=== PATIENT | female | born 1995 | race African-American/Black ===

== ENCOUNTER 2019-12-24 17:09 | Emergency (ER) | payer BC ==
[~2019-12-24] VITALS: Ht 154.9 cm; Wt 172.7 kg
[2019-12-24 17:22] VITALS: Ht 154.9 cm; Wt 172.7 kg
[2019-12-24 18:02] LABS: HCG URINE NEGATIVE (NEGATIVE)
[2019-12-24 18:10] LABS: APTT 32.1 SECONDS (22.8-39.4); INR 1.08 (0.85-1.17)
[2019-12-24 18:12] LABS: BASOPHILS 0.3 % (0-2); CALC OSMOLALITY 277 mosm/kg (275-300); CALCIUM 9.1 mg/dL (8.5-10.1); CARBON DIOXIDE 27.1 mmol/L (21.0-32.0); CHLORIDE - SERUM 102 mmol/L (98-107); EOSINOPHILS 0 % (0-7); GLUCOSE 138 mg/dL (74-106); HEMATOCRIT 38.7 % (36.0-48.0); HEMOGLOBIN 11.9 g/dL (12-16); LYMPHOCYTES 11.1 % (15-50); MCH 26.1 pg (26.0-34.0); MCHC 30.7 g/dL (31.0-37.0); MCV 84.9 fL (80.0-100.0); MONOCYTES 7.1 % (2-11); NEUTROPHILS 80.5 % (40-80); PLATELET COUNT 296 10x3/uL (130-400); POTASSIUM - SERUM 3.7 mmol/L (3.5-5.1); RBC 4.56 10x6/uL (4.00-5.40); RDW 15.7 % (11.5-14.5); SODIUM 138 mmol/L (136-145); UREA NITROGEN 12 mg/dL (7-18); WBC 10.7 10x3/uL (4.8-10.8); eGFR NON AFRICAN AMERICAN 72 mL/min (90-120)
[2019-12-24 18:19] LABS: BILIRUBIN NEGATIVE (NEGATIVE); KETONE SMALL mg/dL (NEGATIVE); NITRITE NEGATIVE (NEGATIVE); UROBILINOGEN NORMAL (NORMAL)
[2019-12-24 18:20] LABS: BACTERIA FEW /hpf (NONE SEEN); RED CELLS - URINE 0-5 /hpf (0-5); WHITE CELLS - URINE 0-5 /hpf (0-5)
[2019-12-24 18:32] LABS: ALBUMIN 3.4 g/dL (3.4-5.0); ALKALINE PHOSPHATASE 60 U/L (30-120); ALT (SGPT) 23 U/L (10-68); BILIRUBIN - TOTAL 0.38 mg/dL (0.2-1.3); CKMB 0.6 U/L (0.0-3.6); CREATINE KINASE 97 UL (21-215); PRO BNP 206 pg/mL (0-125)
[2019-12-24 18:35] LABS: TROPONIN-I < 0.017 ng/mL (0.000-0.060)
[2019-12-24 21:10] VITALS: BP 144/87
== END 2019-12-24 21:10 | disposition home or self-care (01) ==
LOC: D.ER 17:09
PROVIDERS: Family Medicine
DX: B34.9 Viral infection, unspecified (principal); R51 Headache; R11.0 Nausea; R06.02 Shortness of breath

== ENCOUNTER 2019-12-27 18:32 | Emergency (ER) | payer BC ==
[~2019-12-27] VITALS: Ht 175.3 cm; Wt 172.7 kg
[2019-12-27 18:37] VITALS: Ht 175.3 cm; Wt 172.7 kg
[2019-12-27 19:38] LABS: BASOPHILS 0.3 % (0-2); EOSINOPHILS 1.6 % (0-7); HEMATOCRIT 36.9 % (36.0-48.0); HEMOGLOBIN 11.4 g/dL (12-16); IMMATURE GRANULOCYTES 0.2 % (0-5); LYMPHOCYTES 30.1 % (15-50); MCH 26.3 pg (26.0-34.0); MCHC 30.9 g/dL (31.0-37.0); MCV 85.2 fL (80.0-100.0); MONOCYTES 7.9 % (2-11); NEUTROPHILS 59.9 % (40-80); PLATELET COUNT 285 10x3/uL (130-400); RBC 4.33 10x6/uL (4.00-5.40); RDW 15.4 % (11.5-14.5); WBC 9.5 10x3/uL (4.8-10.8)
[2019-12-27 19:51] LABS: ANION GAP 10.2 mmol/L (8-16); CALCIUM 8.4 mg/dL (8.5-10.1); CARBON DIOXIDE 28.1 mmol/L (21.0-32.0); POTASSIUM - SERUM 3.3 mmol/L (3.5-5.1)
[2019-12-27 19:57] LABS: BILIRUBIN - TOTAL 0.19 mg/dL (0.2-1.3); C-REACTIVE PROTEIN 2.1 mg/dL (0.0-0.9)
[2019-12-27 21:19] LABS: BILIRUBIN NEGATIVE (NEGATIVE); KETONE NEGATIVE (NEGATIVE); NITRITE NEGATIVE (NEGATIVE); UROBILINOGEN NORMAL (NORMAL)
[2019-12-27 21:20] LABS: BACTERIA FEW /hpf (NONE SEEN); WHITE CELLS - URINE 0-5 /hpf (0-5)
[2019-12-27] MEDS ORDERED: OMNICEF300 MG PO (21:27)
[2019-12-27] MEDS ORDERED: BROMFED-DM COU473 ML PO (21:27)
[2019-12-27] MEDS ORDERED: VOLTAREN75 MG PO (21:27)
[2019-12-27] MEDS ORDERED: FLUTICASONE PRO16 GM NASAL (21:27)
[2019-12-27 23:55] VITALS: BP 143/80
== END 2019-12-27 23:56 | disposition home or self-care (01) ==
LOC: D.ER 18:32
PROVIDERS: Family Medicine
DX: J32.9 Chronic sinusitis, unspecified (principal); R79.82 Elevated C-reactive protein (CRP); R51 Headache; E87.6 Hypokalemia; N39.0 Urinary tract infection, site not specified